=== PATIENT | male | born 1940 | race Two or more races ===

== ENCOUNTER 2024-10-02 16:31 | Inpatient (IN) | payer OTHER ==
[~2024-10-02] VITALS: Ht 167.6 cm; Wt 72.6 kg
[2024-10-02] MEDS ORDERED: CARDURA1 MG (16:39)
[2024-10-02] MEDS ORDERED: HYDROCHLOROTHIA25 MG PO (16:39)
[2024-10-02] MEDS ORDERED: IRBESARTAN75 MG (16:39)
[2024-10-02] MEDS ORDERED: LEVOTHYROXINE25 MCG (16:39)
--- NOTE | 2024-10-02 16:55 | NUR ---
SE RECIBE PTE ALERTA Y ORIENTADO X3. REFIERE DOLOR DE PECHO Y PUNZADAS EN BRAZO FERNANDO QUE COMENZO HACE 3 CURIEL E INTENSIFICO EN EL HOA DE HOY. SE REALIZA EKG Y SE PRESENTA A DR. MCGEE. SE UBICA PTE EN UNIDAD DE CHEST PAIN EN CAMA #18 Y SE CONECTA A MONITOR CARDIACO Y OXIMETRIA DE PULSO CONTINUA.
[2024-10-02] MEDS ORDERED: TICAGRELOR 90 MG TABLET PO ONE (17:00)
[2024-10-02] MEDS ORDERED: NITROGLYCERIN 250 ML IV SCH (17:00)
[2024-10-02] MEDS ORDERED: NITROGLYCERIN IN 5 % DEXTROSE 50 MG/250 ML BOTTLE IV ONE (17:13)
--- NOTE | 2024-10-02 17:38 | NUR ---
SE ORIENTA PTE SOBRE TX MEDICO EL CUAL REFIERE ENTENDER.SE LE EXTRAEN MUESTRAS BAJO MEDIDAS ASEPTICAS,SE CANALIZA Y SE ADMINISTRAN MEDICAMENTOS LYNN ORDEN MEDICA.PTE CONECTADO A MONITOR CARDIACO Y OXIMETRIA.
[2024-10-02 18:14] LABS: HEMATOCRIT 43.9 % (39.0-48.0); HEMOGLOBIN 14.9 g/dL (13-16.00); MEAN CORPUSCULAR HEMOGLOBIN 31.6 pg (27.00-32.0); PLATELET COUNT 190 K/uL (150-450); RED BLOOD COUNT 4.72 M/uL (4.00-6.00); RED CELL DISTRIBUTION WIDTH 14.2 % (11.5-14.5)
[2024-10-02 18:41] LABS: ALBUMIN 3.3 gm/dL (3.4-5.0); BILIRUBIN TOTAL 0.68 mg/dL (0.3-1.2); CALCIUM 9.1 mg/dL (8.5-10.1); CREATININE SERUM 1.33 mg/dL (0.70-1.30); GFR 51.1; GLOBULINA 3.5 G/DL (2.4-3.5); POTASSIUM 4.44 mEq/L (3.5-5.1); TOTAL PROTEIN 6.8 gm/dL (6.4-8.2)
[2024-10-02 18:48] LABS: INR 1.03; PARTIAL THROMBOPLASTIN TIME 26.8 SECONDS (22.0-34.0); PROTHROMBIN TIME 11.2 SECONDS (9.0-11.5)
[2024-10-02] MEDS ORDERED: ATORVASTATIN CALCIUM 40 MG TABLET PO SCH (19:58)
[2024-10-02] MEDS ORDERED: MORPHINE SULFATE 2 MG/ML CARTRIDGE IV PRN (20:00)
[2024-10-02] MEDS ORDERED: ASPIRIN 325 MG TABLET.EC PO ONE (20:00)
[2024-10-02] MEDS ORDERED: ACETAMINOPHEN 500 MG GEL..CAP PO PRN (20:00)
[2024-10-02] MEDS ORDERED: 0.9 % SODIUM CHLORIDE 1,000 ML IV SCH (20:00)
[2024-10-02] MEDS ORDERED: ENOXAPARIN SODIUM 80 MG/0.8 ML SYRINGE SUBCUTANEO ONE (20:15)
[2024-10-02] MEDS ORDERED: ENOXAPARIN SODIUM 80 MG/0.8 ML SYRINGE SUBCUTANEO SCH (21:00)
[2024-10-02 21:15] VITALS: BP 134/74; O2SAT 97
[2024-10-02 23:00] VITALS: BP 110/51; O2SAT 96
[2024-10-03] VITALS (11 sets, daily range): BP systolic 100–119; BP diastolic 52–70; O2SAT 95–98
[2024-10-03] MEDS ORDERED: TICAGRELOR 90 MG TABLET PO SCH (05:00)
[2024-10-03] MEDS ORDERED: LEVOTHYROXINE SODIUM 25 MCG TABLET PO SCH (06:00)
[2024-10-03 06:43] LABS: CHOL HDL RATIO 3.5 (0-5.0)
[2024-10-03] MEDS ORDERED: NITROGLYCERIN IN 5 % DEXTROSE 250 ML IV SCH (06:45)
[2024-10-03] MEDS ORDERED: FAMOTIDINE/PF 20 MG in 0.9 % SODIUM CHLORIDE 8 ML IV PUSH SCH (09:00)
[2024-10-03] MEDS ORDERED: ASPIRIN 81 MG TAB.CHEW PO SCH (09:00)
[2024-10-03] MEDS ORDERED: LOSARTAN POTASSIUM 25 MG TABLET PO SCH (09:00)
[2024-10-03 10:15] LABS: TSH 2.97 uIU/mL (0.358-3.74)
[2024-10-03] MEDS ORDERED: ENOXAPARIN SODIUM 60 MG/0.6 ML SYRINGE SUBCUTANEO SCH (21:00)
[2024-10-03 21:57] LABS: CALCIUM 8.6 mg/dL (8.5-10.1); CREATININE SERUM 1.4 mg/dL (0.70-1.30); GFR 48.16; POTASSIUM 4.23 mEq/L (3.5-5.1)
[2024-10-04] VITALS (9 sets, daily range): BP systolic 108–141; BP diastolic 64–79; O2SAT 94–98
[2024-10-04 08:30] LABS: CALCIUM 8.6 mg/dL (8.5-10.1); CREATININE SERUM 1.06 mg/dL (0.70-1.30); GFR 66.4; POTASSIUM 4.2 mEq/L (3.5-5.1)
[2024-10-04] MEDS ORDERED: LISINOPRIL 5 MG TABLET PO SCH (12:19)
[2024-10-04] MEDS ORDERED: FAMOTIDINE/PF 20 MG in 0.9 % SODIUM CHLORIDE 8 ML IV PUSH SCH (17:00)
[2024-10-05] VITALS (9 sets, daily range): BP systolic 132–143; BP diastolic 71–81; O2SAT 94–99
[2024-10-05 07:43] LABS: ALBUMIN 2.9 gm/dL (3.4-5.0); BILIRUBIN TOTAL 1.11 mg/dL (0.3-1.2); CALCIUM 8.9 mg/dL (8.5-10.1); CREATININE SERUM 1.01 mg/dL (0.70-1.30); GFR 70.21; GLOBULINA 3.2 G/DL (2.4-3.5); POTASSIUM 4.08 mEq/L (3.5-5.1); TOTAL PROTEIN 6.1 gm/dL (6.4-8.2)
[2024-10-06 00:18] VITALS: O2SAT 95
[2024-10-06 00:36] VITALS: BP 154/90; O2SAT 96
[2024-10-06 03:18] VITALS: O2SAT 90
[2024-10-06 07:52] VITALS: BP 148/91; O2SAT 91
== END 2024-10-06 09:08 | disposition designated cancer center or children's hospital (05) | DRG 282 ==
LOC: EDBD 16:33 → ER 16:33 → MEDI 21:22 → ICU-2 21:22 → SEC-K 10-03 12:27 → MEDI 10-03 12:52
PROVIDERS: General Practice; Internal Medicine; ADMIT Student in an Organized Health Care Education/Training Program; ATTEND Student in an Organized Health Care Education/Training Program
PROC: B246ZZZ Ultrasonography of Right and Left Heart (ICD-10-PCS; principal; 2024-10-02)
PROC: 4A12X4Z Monitoring of Cardiac Electrical Activity, External Approach (ICD-10-PCS; 2024-10-02)
DX: I21.4 Non-ST elevation (NSTEMI) myocardial infarction (principal); I24.9 Acute ischemic heart disease, unspecified; I35.0 Nonrheumatic aortic (valve) stenosis; I11.9 Hypertensive heart disease without heart failure; E03.9 Hypothyroidism, unspecified; Z95.818 Presence of other cardiac implants and grafts